=== PATIENT | female | born 2000 | race Caucasian/White ===

== ENCOUNTER 2023-03-31 21:08 | Emergency (ER) | payer BC, SELFPAY ==
[2023-03-31 21:12] VITALS: BP 100/54; PULSE 68; RESP 16; TEMP 36.8; O2SAT 99
--- NOTE | 2023-03-31 22:00 | DI.CT_ITS ---
Exam(s) CT ORBITS W EXAM: CT ORBITS W CLINICAL HISTORY: right eye pain. TECHNIQUE: Imaging Protocol: Axial computed tomography images with coronal and sagittal reformatted images were created and reviewed. IV contrast: Omnipaque-350; 100 mL COMPARISON: No exams were available for comparison FINDINGS: MAXILLOFACIAL CT SCAN: There is no evidence of facial fractures nor fluid the visualized paranasal sinuses. Orbits: No evidence of blowout fracture. Orbital globes and retro conal compartments unremarkable. Extraocular muscles unremarkable. Lacrima l glands unremarkable. No abnormal soft tissue densities. No aneurysms evident IMPRESSION: No significant findings. RADIATION DOSE DELIVERED: Total DLP DATA REPOSITORY: All CT scans at this facility are submitted to the National Radiology Data Registry (NRDR) Dose Index Registry (DIR) with the [employer] (ACR). RADIATION OPTIMIZATION: All CT scans at this facility use at least one of these dose optimization te chniques: automated exposure control; mA and/or kV adjustment per patient size (includes targeted exa ms where dose is matched to clinical indication); or iterative reconstruction.
--- NOTE | 2023-03-31 22:00 | DI.CT_ITS ---
Exam(s) CT HEAD WO EXAM: CT HEAD WO CLINICAL HISTORY: headache. TECHNIQUE: Imaging Protocol: Axial computed tomography images with coronal and sagittal reformatted images were created and reviewed COMPARISON: CT CT ORBITS W from 03/31/2023 FINDINGS: There are no skull fractures. There is no fluid in the visualized paranasal sinuses. There is no evidence of intracranial hemorrhage, mass effect, or shift of midline structures. There are no extra-axial fluid collections. The ventricles are not enlarged or shifted and there is no blo od within the ventricular system nor within the basal cisterns. IMPRESSION: No acute intracranial findings on this noninfused CT scan of the brain. RADIATION DOSE DELIVERED: 870.51 mGy.cm Total DLP DATA REPOSITORY: All CT scans at this facility are submitted to the National Radiology Data Registry (NRDR) Dose Index Registry (DIR) with the [employer] (ACR). RADIATION OPTIMIZATION: All CT scans at this facility use at least one of these dose optimization te chniques: automated exposure control; mA and/or kV adjustment per patient size (includes targeted exa ms where dose is matched to clinical indication); or iterative reconstruction.
--- NOTE | 2023-03-31 22:16 | ED.GENADUL_ITS ---
Discharge Plan Disposition Patient Disposition: Home Discharge Details Clinical Impression: Preseptal cellulitis of right eye Primary Care Provider: Unknown,Unknown ED Provider: Uche Contreras Home Meds and New Rx's Prescriptions: Continued amoxicillin-pot clavulanate 875-125 mg tablet 1 tab PO BID 7 Days Qty: 14 0RF Rx Instructions: Take with meal. Take 1 pill every 12 hours x 7days doxycycline hyclate 100 mg capsule 100 mg PO BID Qty: 14 0RF Rx Instructions: Avoid sun exposure. Take with meal. Take 1 pill every 12 hours x 7 days Discharge Instructions Instructions: Periorbital Cellulitis in Adults (ED) Additional Instructions: At this time CT imaging did not show a infection of the right orbit. Given the pain redness and swelling I still am concerned for potential of infection and it is important that you continue to take your antibiotics as prescribed. I agree with the urgent care provider that you should follow-up with an eye health care attorney tomorrow for reassessment of your eye given that you have been having eye pain for 5 days. If you have any new or significant worsening of symptoms feel free to return the emergency department for reassessment Referrals: [facility] [Outside] - 1 day Medical Decision Making Patient presenting to the emergency department for chief complaint of right eye pain. Patient stated that 5 days ago she started having pain and discomfort with slow advance swelling of the eye. Patient was then seen at urgent care today and they placed her on oral antibiotics for concern of possible orbital cellulitis. Patient denies any fever and chills but does state swelling redness and discomfort to the eye with painful EOMs of the right eye. Patient reports mild nausea secondary to the antibiotic she has started and slight headache as well. Physical exam shows swelling redness and tenderness to the right eye, fully intact EOMs but patient does state some pain and discomfort. There is slight photophobia but pupillary response is normal and exam is otherwise nondiagnostic. Given patient stating slight increase of pain and discomfort this evening we will check patient's labs and CT imaging. Patient states that she just took her oral antibiotics 2 hours prior to arrival so I do not feel that we need IV antibiotics as of yet but will continue to monitor. Pending results we will give patient ketorolac for discomfort. Reviewed patient's labs and CBC is normal with no significant leukocytosis or shift, CMP shows slightly low potassium at 3.4 and slightly elevated anion gap of 11.[address] imaging was reviewed and shows no acute findings and no findings to suggest orbital cellulitis. Patient reassessed and states significant improvement of her pain and discomfort and of note it even does appear that her swelling has gone down. Given unremarkable labs and imaging I do feel that patient can be safely discharged and does not require IV antibiotics at this point. I did recommend that patient continues oral antibiotics along with follow-up to eye health care attorney given that patient has had symptoms for 5 days. After discussion of diagnosis and plan of care patient has no further needs, questions, or concerns and states clear understanding to return to the emergency department for any worsening symptoms. This documentation was generated using [employer] dictation system, please disregard any oddities of phrase or misspellings. Imaging Data Radiologic Study: Imaging: CT Scan Radiologist's impression: Exam(s) PROCEDURE INFORMATION: Exam: CT Orbits With Contrast Exam date and time: 03/31/2023 10:43 PM Age: 23 years old Clinical indication: Other: RT eye pain TECHNIQUE: Imaging protocol: Computed tomography of the orbits with contrast. Radiation optimization: All CT scans at this facility use at least one of these dose optimization techniques: automated exposure control; mA and/or kV adjustment per patient size (includes targeted exams where dose is matched to clinical indication); or iterative reconstruction. Contrast material: OMNIPAQUE 350; Contrast volume: 100 ml; Contrast route: INTRAVENOUS (IV); COMPARISON: No relevant prior studies available. FINDINGS: Paranasal sinuses: Normal. No air-fluid levels. Orbital cavities: Orbits are normal. Globes are unremarkable. Bones/joints: No acute fracture. Soft tissues: No significant facial soft tissue swelling. IMPRESSION: No acute findings. Radiologic Study #2: Imaging: CT Scan Radiologist's impression: Exam(s) PROCEDURE INFORMATION: Exam: CT Head Without Contrast Exam date and time: 03/31/2023 10:43 PM Age: 23 years old Clinical indication: Other: Headache TECHNIQUE: Imaging protocol: Computed tomography of the head without contrast. Radiation optimization: All CT scans at this facility use at least one of these dose optimization techniques: automated exposure control; mA and/or kV adjustment per patient size (includes targeted exams where dose is matched to clinical indication); or iterative reconstruction. COMPARISON: No relevant prior studies available. FINDINGS: Brain: Normal. No hemorrhage. Unremarkable white matter. No mass effect. Cerebral ventricles: No ventriculomegaly. Paranasal sinuses: Visualized sinuses are unremarkable. No fluid levels. Mastoid air cells: Visualized mastoid air cells are well aerated. Bones/joints: Unremarkable. No acute fracture. Soft tissues: Unremarkable. IMPRESSION: No acute intracranial abnormality. Lab Data Lab results reviewed: Yes I reviewed the patient's lab results. HPI General Mode of arrival: ambulatory . Date/Time Provider Initiated Documentation: 03/31/23 21:28 . Limitations to Documentation: no limitations . Information obtained by: patient and RN notes reviewed . History of Present Illness 23 year old F presents to the emergency department with the chief complaint of Right eye pain and swelling, described as moderate, Quality is described as aching and sharp, and is localized to the eyes and right. Patient started experiencing this day(s) (5) and it has been constant. No relieving factors improve symptom(s), No exacerbating factors reported . Patient notes headaches. Patient did receive the following treatments prior to arrival, other (Antibiotics as prescribed last dose 7 PM) Related Data Home Medications Medication Instructions Recorded Confirmed amoxicillin 875 mg-potassium 1 tab PO BID 7 days #14 tabs 03/31/23 03/31/23 clavulanate 125 mg tablet doxycycline hyclate 100 mg capsule 100 mg PO BID #14 caps 03/31/23 03/31/23 Previous Rx's Medication Instructions Recorded amoxicillin 875 mg-potassium 1 tab PO BID 7 days #14 tabs 03/31/23 clavulanate 125 mg tablet doxycycline hyclate 100 mg capsule 100 mg PO BID #14 caps 03/31/23 Allergies Allergy/AdvReac Type Severity Reaction Status Date / Time magnesium Allergy Verified 03/31/23 21:19 Sulfa (Sulfonamide Allergy Verified 03/31/23 21:19 Antibiotics) sulfamethoxazole Allergy Verified 03/31/23 21:19 [From Bactrim] trimethoprim [From Bactrim] Allergy Verified 03/31/23 21:19 karafate Allergy Uncoded 03/31/23 21:19 General Stated Complaint: EyeProblem KARLEE: 4 Review of Systems Constitutional Constitutional: Denies chills, Denies fever(s) and Reports headache(s) Eyes Eyes: Reports as per HPI, Denies change in vision, Denies eye discharge, Reports irritation, Denies loss of vision, Reports eye pain and Reports photophobia ENT Ears, Nose, Mouth, and Throat: Denies dizziness, Denies otalgia, Reports headache(s), Denies nasal congestion, Denies sinus pressure and Denies sore throat Cardiovascular Cardiovascular: Denies chest pain Gastrointestinal Gastrointestinal: Denies abdominal pain and Reports nausea (Secondary to antibiotics) Neurologic Neurologic: Denies dizziness, Reports headache(s), Denies loss of vision and Denies other visual disturbances PFSH All Active Problems (Updated 03/31/23 @ 23:22 by Uche Contreras NP) Preseptal cellulitis of right eye (Acute) Social History Smoking/Tobacco Use Status: Never Smoking risk assessment performed?: Yes Drug use: Never Substance use type: does not use Do you feel safe at home: Yes Do you feel safe in your relationship?: Yes Exam Const General: cooperative, no acute distress and not ill appearing Orientation: alert, awake and oriented x3 HENMT Mouth: moist mucous membranes Eyes Visual Reich: normal visual reich by confrontation Alignment and Position: alignment normal and position normal Periorbital: periorbital findings abnormal right periorbital swelling, periorbital tenderness and periorbital erythema; no ecchymosis and no crepitus Eyelids: eyelid abnormality right upper eyelid erythema and swelling and right lower eyelid erythema and tenderness Conjunctivae: conjunctival abnormality right conjunctival injection Sclera: sclerae normal Pupils: PERRL, normal by confrontation and accommodation normal EOM: EOM intact bilaterally and EOM abnormal (Pain with movement) Neck Neck: normal visual inspection and full ROM Resp Effort & Inspection: normal respiratory effort, able to speak in complete sentences and no respiratory distress Neuro General: patient alert, patient awake, patient oriented x3, moves all extremities and no focal motor deficits Sensory Exam: no sensory deficits noted Course Vital Signs Vital signs: Vital Signs Temperature 36.8 C 03/31/23 21:12 Pulse 68 03/31/23 21:12 Respiratory Rate 16 03/31/23 21:12 Blood Pressure 100/54 L 03/31/23 21:12 Pulse Oximetry 99 03/31/23 21:12 Temperature 36.8 C 03/31/23 21:12 Pulse 68 03/31/23 21:12 Respiratory Rate 16 03/31/23 21:12 Respiratory Effort Normal 03/31/23 21:17 Blood Pressure 100/54 L 03/31/23 21:12 Pulse Oximetry 99 03/31/23 21:12 Oxygen Delivery Method Room Air 03/31/23 21:12 Oxygen Flow Rate 0 03/31/23 21:12 Pain Level 7 03/31/23 21:12
[2023-03-31] MEDS: Ketorolac 15 MG/ML VIAL IVP (22:18)
[2023-03-31 22:32] LABS: Lactate 0.7 mmol/L (0.6-1.4)
[2023-03-31 22:37] LABS: Abs Immature Grans 0.02 10^3/uL (0.0-0.06); Absolute Basophil Count 0.04 10^3/uL (0.0-0.2); Absolute Eosinophil Count 0.14 10^3/uL (0.0-0.7); Absolute Lymphocyte Count 2.99 10^3/uL (1.2-3.4); Absolute Monocyte Count 0.74 10^3/uL (0.1-0.8); Absolute Neutrophil Count 6.56 10^3/uL (1.2-6.7); Basophils % 0.4; Eosinophils % 1.3; HCT 37.1 % (36.0-46.0); Immature Grans % 0.2; Lymphocytes % 28.5; MCH 31.4 pg (27.0-33.0); MCV 90 fL (80-95); MPV 9.1 fL (8.0-11.0); Monocytes % 7.1; Neutrophils % 62.5; Platelet Count 379 10^3/uL (130-400); RBC 4.14 10^6/uL (3.93-5.22); RDW 11.9 % (11.7-14.6); WBC 10.49 10^3/uL (4.4-10.8)
[2023-03-31] MEDS: Omnipaque 350 MG/ML 100 ML BTL IJ (22:46)
[2023-03-31] MEDS: Normal Saline - Diluent 50 ML VIAL IJ (22:47)
[2023-03-31 23:02] LABS: ALT 22 U/L (14-59); AST 20 U/L (15-37); Albumin 4.2 g/dL (3.4-5.0); Alkaline Phosphatase 57 U/L (46-116); Anion Gap 11.2 mmol/L (3-11); BUN 11 mg/dL (7-18); Bilirubin, Total 0.5 mg/dL (0.2-1.0); CO2 25.8 mmol/L (21.0-32.0); CREATININE 0.9 mg/dL (0.55-1.02); Calcium 8.8 mg/dL (8.5-10.1); Chloride 100 mmol/L (98-107); Glucose 90 mg/dL (74-106); Potassium 3.4 mmol/L (3.5-5.1); Sodium 137 mmol/L (136-145); Total Protein 8.1 g/dL (6.4-8.2)
--- NOTE | 2023-03-31 23:10 | DI.VRAD_ITS ---
PROCEDURE INFORMATION: Exam: CT Head Without Contrast Exam date and time: 03/31/2023 10:43 PM Age: 23 years old Clinical indication: Other: Headache TECHNIQUE: Imaging protocol: Computed tomography of the head without contrast. Radiation optimization: All CT scans at this facility use at least one of these dose optimization techniques: automated exposure control; mA and/or kV adjustment per patient size (includes targeted exams where dose is matched to clinical indication); or iterative reconstruction. COMPARISON: No relevant prior studies available. FINDINGS: Brain: Normal. No hemorrhage. Unremarkable white matter. No mass effect. Cerebral ventricles: No ventriculomegaly. Paranasal sinuses: Visualized sinuses are unremarkable. No fluid levels. Mastoid air cells: Visualized mastoid air cells are well aerated. Bones/joints: Unremarkable. No acute fracture. Soft tissues: Unremarkable. IMPRESSION: No acute intracranial abnormality. Dictated and Authenticated by: Héctor Mcclain MD. Ordering:AMY Ivey MD
--- NOTE | 2023-03-31 23:10 | DI.VRAD_ITS ---
PROCEDURE INFORMATION: Exam: CT Orbits With Contrast Exam date and time: 03/31/2023 10:43 PM Age: 23 years old Clinical indication: Other: RT eye pain TECHNIQUE: Imaging protocol: Computed tomography of the orbits with contrast. Radiation optimization: All CT scans at this facility use at least one of these dose optimization techniques: automated exposure control; mA and/or kV adjustment per patient size (includes targeted exams where dose is matched to clinical indication); or iterative reconstruction. Contrast material: OMNIPAQUE 350; Contrast volume: 100 ml; Contrast route: INTRAVENOUS (IV); COMPARISON: No relevant prior studies available. FINDINGS: Paranasal sinuses: Normal. No air-fluid levels. Orbital cavities: Orbits are normal. Globes are unremarkable. Bones/joints: No acute fracture. Soft tissues: No significant facial soft tissue swelling. IMPRESSION: No acute findings. Dictated and Authenticated by: Héctor Mcclain MD. Ordering:AMY Ivey MD
[2023-03-31 23:16] VITALS: BP 108/51; PULSE 61; RESP 18; O2SAT 100
== END 2023-03-31 23:34 | disposition home or self-care (01) ==
PROVIDERS: Emergency Provider Nurse Practitioner Family
DX: L03.213 Periorbital cellulitis (principal)
CPT/HCPCS: 80053; 81025; 96374; 99285; 70450; 70481; 83605; 85025; 99283; J1885; J3490

== ENCOUNTER 2023-10-07 12:14 | Emergency (ER) | payer BC, SELFPAY ==
[2023-10-07 12:19] VITALS: BP 109/54; PULSE 60; RESP 18; TEMP 35.9; O2SAT 100
--- NOTE | 2023-10-07 12:30 | DI.CT_ITS ---
Exam(s) CT HEAD ORBITS WO EXAM: CT HEAD ORBITS WO CLINICAL HISTORY: right sided head pain s/p hit with ball. TECHNIQUE: Imaging Protocol: Axial computed tomography images with coronal and sagittal reformatted images were created and reviewed COMPARISON: CT CT HEAD WO from 03/31/2023 FINDINGS: BRAIN: There are no skull fractures nor fluid in the visualized paranasal sinuses. There is no evidence of intracranial hemorrhage, mass effect, or shift of midline structures. There are no extra-axial fluid collections. The ventricles are not enlarged or shifted and there is no blo od within the ventricular system nor within the basal cisterns. MAXILLOFACIAL CT SCAN: There is no evidence of orbital blowout fracture. No evidence of nasal bone nor other facial bone fr actures and there is no fluid in the paranasal sinuses. Orbits exhibit no obvious dysconjugate gaze. No blood levels in the orbital globes nor abnormal dens ity in the retro conal compartments. Optic nerves appear unremarkable as do the extra-ocular muscles . Lacrimal glands unremarkable. IMPRESSION: No acute intracranial findings on this noninfused CT scan of the brain. No evidence of facial bone fractures nor orbital fractures. Called by myself to ER. RADIATION DOSE DELIVERED: Total DLP DATA REPOSITORY: All CT scans at this facility are submitted to the National Radiology Data Registry (NRDR) Dose Index Registry (DIR) with the [employer] (ACR). RADIATION OPTIMIZATION: All CT scans at this facility use at least one of these dose optimization te chniques: automated exposure control; mA and/or kV adjustment per patient size (includes targeted exa ms where dose is matched to clinical indication); or iterative reconstruction.
--- NOTE | 2023-10-07 12:37 | ED.GENADUL_ITS ---
Discharge Plan Disposition Patient Disposition: Home Condition: Stable Discharge Details Clinical Impression: Blunt head trauma Primary Care Provider: Unknown,Unknown ED Provider: Abelardo Owusu Home Meds and New Rx's Prescriptions: New ondansetron 4 mg tablet,disintegrating 4 mg PO Q8H PRN (Reason: nausea and vomiting) Qty: 30 0RF Discontinued doxycycline hyclate 100 mg capsule 100 mg PO BID Qty: 14 0RF Rx Instructions: Avoid sun exposure. Take with meal. Take 1 pill every 12 hours x 7 days Discharge Instructions Additional Instructions: Your CAT scan did not show any concerning findings You may find that bright lights and television and computer screens increase your head pain, if it does I would avoid looking at these You can take 1000 mg of acetaminophen and 600 mg of ibuprofen every 6 hours as needed Follow-up with your primary care provider within 1 week especially if symptoms continue If you feel more ill, have severe worsening pain, or persistent vomiting despite the medication return to the emergency department for evaluation HPI General Mode of arrival: ambulatory . Date/Time Provider Initiated Documentation: 10/07/23 12:32 . Limitations to Documentation: no limitations . Information obtained by: patient . History of Present Illness 23 year old F presents to the emergency department with the chief complaint of Head pain status post being hit in the head with a softball yesterday, described as moderate, Quality is described as aching, and is localized to the head. Patient reports no radiation. Patient started experiencing this day(s) (1) and it has been constant. No relieving factors improve symptom(s), No exacerbating factors reported . Patient notes nausea/vomiting; denies chest pain and fever/chills. Related Data Home Medications Medication Instructions Recorded Confirmed ondansetron 4 mg disintegrating 4 mg PO Q8H PRN nausea and 10/07/23 tablet vomiting #30 tabs Previous Rx's Medication Instructions Recorded ondansetron 4 mg disintegrating 4 mg PO Q8H PRN nausea and 10/07/23 tablet vomiting #30 tabs Allergies Allergy/AdvReac Type Severity Reaction Status Date / Time magnesium Allergy Verified 03/31/23 21:19 Sulfa (Sulfonamide Allergy Verified 03/31/23 21:19 Antibiotics) sulfamethoxazole Allergy Verified 03/31/23 21:19 [From Bactrim] trimethoprim [From Bactrim] Allergy Verified 03/31/23 21:19 karafate Allergy Uncoded 03/31/23 21:19 General Stated Complaint: HeadInjury KARLEE: 3 Review of Systems All systems reviewed & are unremarkable except as noted in HPI and below Constitutional Constitutional: Denies chills, Denies fever(s) and Denies weakness Cardiovascular Cardiovascular: Denies chest pain and Denies dyspnea Respiratory Respiratory: Denies cough and Denies dyspnea Gastrointestinal Gastrointestinal: Denies abdominal pain, Reports nausea and Reports vomiting Genitourinary Genitourinary: Denies dysuria Musculoskeletal Musculoskeletal: Denies joint swelling Integumentary/Breasts Skin/Breast: Denies rash Neurologic Neurologic: Denies weakness Exam Const General: no acute distress Orientation: alert HENMT Head: normal to inspection Ears: external ears normal General nose exam: external nose normal Mouth: moist mucous membranes Eyes General: appearance normal, both eyes and all related structures Alignment and Position: alignment normal Periorbital: periorbital findings normal Eyelids: eyelids normal Conjunctivae: conjunctivae normal Pupils: PERRL Neck Neck: normal visual inspection Resp Effort & Inspection: normal respiratory effort and able to speak in complete sentences Cardio Rate: regular rate Skin General skin exam: no rashes or lesions noted Neuro General: patient alert and patient oriented x3 Extrem General: normal to inspection Psych Mental Status: mental status grossly normal Course Vital Signs Vital signs: Vital Signs Temperature 35.9 C L 10/07/23 12:19 Pulse 60 10/07/23 12:19 Respiratory Rate 18 10/07/23 12:19 Blood Pressure 109/54 L 10/07/23 12:19 Pulse Oximetry 100 10/07/23 12:19 Temperature 35.9 C L 10/07/23 12:19 Temperature Source Temporal Artery Scan 10/07/23 12:19 Pulse 60 10/07/23 12:19 Respiratory Rate 18 10/07/23 12:19 Blood Pressure 109/54 L 10/07/23 12:19 Pulse Oximetry 100 10/07/23 12:19 Oxygen Delivery Method Room Air 10/07/23 12:19 Oxygen Flow Rate 0 10/07/23 12:19 Medical Decision Making 23-year-old female who denies any chronic medical problems comes in with head pain and nausea vomiting after getting hit in the head yesterday with a softball. She states she was standing outside of a batting cage when a ball was able to get through the side barriers and hit her in the right frontal head. Denies loss of consciousness but immediately had pain and since then still has pain and some nausea vomiting so came here for an evaluation. Denies any loss of vision, did not fall or hurt any other part of her body. She is alert and oriented x 4 on arrival with normal gait. She localizes the pain to the right frontal head no significant scalp hematomas, extraocular eye motions are intact. Pupils equal and reactive to light. No pain elsewhere. Given mechanism and her complaints will obtain CT head to exclude TBI. imaging unremarkable, patient stable and feels mildly improved. No new symptoms. Suspect mild concussion. She is stable for discharge, advised to follow-up with her primary care provider within 1 week and return precautions given Differential Diagnosis Differential Diagnosis: Concussion, TBI Quality:SDOH Health Related Social Needs: No Data to Display PFSH All Active Problems (Updated 10/07/23 @ 13:41 by Abelardo Owusu MD) Blunt head trauma (Acute) Social History Smoking/Tobacco Use Status: Never Smoking risk assessment performed?: Yes Drug use: Never Substance use type: does not use Do you feel safe at home: Yes Do you feel safe in your relationship?: Yes
[2023-10-07] MEDS: Acetaminophen 500 MG TAB 1000 MG PO (12:47)
== END 2023-10-07 13:54 | disposition home or self-care (01) ==
PROVIDERS: Emergency Provider Emergency Medicine
DX: S09.8XXA Other specified injuries of head, initial encounter (principal); R51.9 Headache, unspecified; R11.2 Nausea with vomiting, unspecified; W22.8XXA Striking against or struck by other objects, initial encounter; Y93.64 Activity, baseball
CPT/HCPCS: 99284; 70450; 70480; 99283

== ENCOUNTER 2023-10-21 17:31 | Emergency (ER) | payer BC, SELFPAY ==
[2023-10-21 17:34] VITALS: BP 103/54; PULSE 72; RESP 18; TEMP 36.1; O2SAT 97
--- NOTE | 2023-10-21 17:38 | ED.GENADUL_ITS ---
Discharge Plan Disposition Patient Disposition: Home Discharge Details Clinical Impression: Peripheral facial palsy, Mild TBI (traumatic brain injury) Primary Care Provider: Unknown,Unknown ED Provider: Tommie Barnett Home Meds and New Rx's Prescriptions: New metoclopramide HCl 5 mg tablet 5 mg PO QACHS Qty: 7 0RF Continued topiramate 25 mg tablet 25 mg PO ONCE Patient Comments: TAKE 1-4 TABLETS BY MOUTH EVERY EVENING DIRECTED Discontinued ondansetron 4 mg tablet,disintegrating 4 mg PO Q8H PRN (Reason: nausea and vomiting) Qty: 30 0RF Discharge Instructions Additional Instructions: You are seen in the emergency department for your nausea and vomiting. Your blood work shows that you are not significantly dehydrated. Please discontinue taking your ondansetron in favor of this second nausea medicine. As we discussed, if you do not urinate at least once every 8 hours while awake for if you cannot eat or drink for 12 hours while awake please return to the emergency department. Otherwise please follow-up with your primary care provider later this week. Please also follow-up with the neurology team as previously scheduled. Discharge Data Discharge Date/Time-TO BE ENTERED AT DEPARTURE: 10/21/23 19:57 HPI General Date/Time Provider Initiated Documentation: 10/21/23 17:38 . HPI Narrative: MDM This is and overall very well-appearing afebrile and not tachycardic 23-year-old female with recent mild TBI reassuring CT scans and MRIs but persistent right- sided peripheral facial palsy and trigeminal nerve with decreased sensation with inability tolerate p.o. concerning for acute dehydration for which patient will undergo laboratory evaluation. No pain out of proportion to suggest necrotizing soft tissue infection. Patient moving all 4 extremities spontaneously and my suspicion is low for CVA so do not feel that she requires an additional MRI. No recurrent head strike to suggest increased risk for intracranial hemorrhage so I did not complete a CT scan. No tonic-clonic activity to suggest seizure so I did not feel that the patient required an EEG. No neck stiffness nor fevers to suggest meningitis I did not feel that the patient required a lumbar puncture. No neck pain to suggest cervical arterial dissection. No shortness of breath nor cough to suggest pneumonia. I considered PE however patient denies chest pain shortness of breath and is PERC negative so I did not send a D-dimer. Will reassess following assessment of electrolytes and IV ondansetron. Patient's facial nerve palsy is not forehead sparing so I am not concerned for central process. 7:10 PM Basic metabolic panel showing mild anion gap but normal bicarbonate and no DINORAH nor elevated BUN. Negative hCG. Will complete p.o. trial. Will discharge with short course of metoclopramide 5 mg and discontinue ondansetron. 7:20 PM Patient tolerated p.o. in the ED. We discussed return to the ED if she cannot eat or drink at least once every 12 hours while awake or if she does not urinate at least once every 8 hours while awake. She understood her return indications will follow-up with her primary care provider later this week and with neurology as previously scheduled. Chronic conditions affecting the care of the patient: N/A History obtained from an outside historian: Patient's father External record review: [facility] Medications: Ondansetron IV fluids Social determinants of health affecting disposition: N/A Management discussed with: N/A Treatment/interventions considered: N/A Response to therapies provided: Resolved vomiting in the ED HPI This is a 23-year-old female with remote history of seizures and mild traumatic brain injury sustained 15 days ago following a head strike with a softball for which she was seen in the ED and had a negative CT scan now with persistent nausea and vomiting. Patient was found 9 days ago to have a cranial nerve deficit for which she was transferred to [facility]. She underwent MRangiogram and MRI at that point in time which was negative for any acute processes. She has outpatient neurological follow-up. She has been taking ODT ondansetron twice daily but had a difficult time tolerating p.o. She has been vomiting and vomited just prior to arrival. She reports that her photophobia has improved. She says that her headache is improved. She denies any recurrent trauma. She has returned to school. She had no seizures. No neck pain. No fevers. No weakness. She has not lost control of her bowels or bladder. Exam General: Well-appearing in no acute distress speaking in complete sentences. Head: Normocephalic, atraumatic. Eye:[Pupils equal, round reactive to light.] Extraocular eye movements intact. No conjunctival injection. No scleral icterus. Ear, nose, mouth, throat: Grossly normal inspection. Normal voice, handling secretions normally. Neck: Trachea midline. Cardiovascular: Well-perfused distal extremities. Respiratory: Nonlabored respiration. Gastrointestinal: Nondistended abdomen. Musculoskeletal: No edema. Moving all 4 extremities spontaneously. Skin: Normal for age and race, grossly normal temperature and turgor. No acute rash. Neurologic: Alert and appropriate. GCS 15. Right-sided cranial nerve VII palsy. Patient does have right-sided weakness of forehead muscles. Patient al so has decreased sensation in V1 V2 V3 on the right. He reports this as approximately 50% compared to the left. No dysmetria. No aphasia.No dysdiadochokinesia. 5 out of 5 bilateral upper and lower extremity strength. Psychiatric: Mood and manner are appropriate. Grooming and personal hygiene are appropriate. Related Data Home Medications Medication Instructions Recorded Confirmed metoclopramide HCl 5 mg tablet 5 mg PO QACHS #7 tabs 10/21/23 topiramate 25 mg tablet 25 mg PO ONCE 10/21/23 10/21/23 Previous Rx's Medication Instructions Recorded metoclopramide HCl 5 mg tablet 5 mg PO QACHS #7 tabs 10/21/23 Allergies Allergy/AdvReac Type Severity Reaction Status Date / Time magnesium Allergy Nausea Verified 10/21/23 17:41 Sulfa (Sulfonamide Allergy Hives Verified 10/21/23 17:41 Antibiotics) sulfamethoxazole Allergy Skin Rash Verified 10/21/23 17:41 [From Bactrim] trimethoprim [From Bactrim] Allergy Skin Rash Verified 10/21/23 17:41 karafate Allergy Nausea Uncoded 10/21/23 17:41 General KARELE: 3 Medical Decision Making Quality:SDOH Health Related Social Needs: No Data to Display PFSH All Active Problems (Updated 10/21/23 @ 19:09 by Tommie Barnett MD) Mild TBI (traumatic brain injury) (Acute) Peripheral facial palsy (Acute) Blunt head trauma (Acute) Social History Smoking/Tobacco Use Status: Never Smoking risk assessment performed?: Yes Drug use: Never Substance use type: does not use Do you feel safe at home: Yes Do you feel safe in your relationship?: Yes
[2023-10-21] MEDS: Ondansetron 4 MG/2 ML VIAL IVP (18:41)
[2023-10-21] MEDS: Normal Saline 500 ML IV (18:41)
[2023-10-21 18:47] LABS: Abs Immature Grans 0.02 10^3/uL (0.0-0.06); Absolute Basophil Count 0.03 10^3/uL (0.0-0.2); Absolute Lymphocyte Count 2.29 10^3/uL (1.2-3.4); Absolute Monocyte Count 0.55 10^3/uL (0.1-0.8); Absolute Neutrophil Count 4.81 10^3/uL (1.2-6.7); Basophils % 0.4; Eosinophils % 1.3; HCT 42.9 % (36.0-46.0); HGB 14.8 g/dL (11.2-15.7); Immature Grans % 0.3; Lymphocytes % 29.4; MCH 31.6 pg (27.0-33.0); MCHC 34.5 % (32.0-36.0); MCV 92 fL (80-95); MPV 9.7 fL (8.0-11.0); Monocytes % 7.1; Neutrophils % 61.5; Platelet Count 313 10^3/uL (130-400); RBC 4.68 10^6/uL (3.93-5.22); RDW 11.7 % (11.7-14.6); RDW-SD 39.5 fL
[2023-10-21 19:04] LABS: Anion Gap 13.8 mmol/L (3-11); BUN 14 mg/dL (7-18); CO2 22.2 mmol/L (21.0-32.0); CREATININE 0.9 mg/dL (0.55-1.02); Chloride 107 mmol/L (98-107); Glucose 87 mg/dL (74-106); HCG Qual (Serum) Negative; Potassium 4.3 mmol/L (3.5-5.1); Sodium 143 mmol/L (136-145)
[2023-10-21] MEDS: Metoclopramide 10 MG TAB (20:36)
== END 2023-10-21 19:57 | disposition home or self-care (01) ==
PROVIDERS: Emergency Provider Emergency Medicine
DX: G51.0 Bell's palsy (principal); S06.890A Other specified intracranial injury without loss of consciousness, initial encounter; W21.05XA Struck by basketball, initial encounter
CPT/HCPCS: 36415; 80048; 96361; 96374; 99284; 84703; 85025; J2405